=== PATIENT | male | born 1945 | race African-American/Black ===

== ENCOUNTER 2020-03-24 08:23 | Emergency (ER) | payer MEDICARE, OTHER ==
[~2020-03-24] VITALS: Ht 175.3 cm; Wt 77.1 kg
--- NOTE | 2020-03-24 08:29 | NUR ---
[id number] SYNCOPE FROM CLINIC, PT WAS FASTING FOR 2 DAYS. PT SYNCOPIZED BEFORE BLOOD DRAW. TO ER BED 12, HOOKED TO MONITOR, VSS, CHANGED TO HOSP GOWN, WARM BLANKET PROVIDED. PATIENT AAO x 3. BREATHING EVEN AND UNLABORED. DR HAMMOND AT BEDSIDE
--- NOTE | 2020-03-24 08:35 | NUR ---
Note ailyn in ED - 03/24/20 at 0908 by LALY patient esthela from clinic had syncopal episode, no injury noted, patient fasting x 2 days. On room air, breathing evenly and unlabored. connected to the monitor and pulse ox. kept comfortable, will continue to monitor accordingly.
--- NOTE | 2020-03-24 08:58 | NUR ---
bs checked 121
[2020-03-24] MEDS ORDERED: IV NS 0.9% 1,000 ML BAG IV ONE (09:00)
--- NOTE | 2020-03-24 09:26 | NUR ---
FRANCHESKA [phone] [employer]
[2020-03-24 09:34] LABS: BASOPHILS % (AUTO) 0.5 % (0.0-2.0); EOSINOPHILS % (AUTO) 1.7 % (0.0-6.0); HEMATOCRIT 29 % (39-51); LYMPHOCYTES # (AUTO) 1.2 /CMM (0.8-4.8); LYMPHOCYTES % (AUTO) 17.8 % (20.0-44.0); MEAN CORPUSCULAR HGB CONC 31 g/dl (31.0-36.0); MEAN CORPUSCULAR VOLUME 68 fL (80-96); MONOCYTES # (AUTO) 0.6 /CMM (0.1-1.30); MONOCYTES % (AUTO) 8.2 % (2.0-12.0); NEUTROPHILS % (AUTO) 71.8 % (43.0-81.0); PLATELET COUNT (AUTO) 244 /CMM (150-450); RED BLOOD CELL COUNT(AUTO) 4.26 MIL/uL (4.5-6.0); WHITE BLOOD COUNT (AUTO) 6.9 K/uL (4.3-11.0)
[2020-03-24 09:52] LABS: CALCIUM, SERUM 8.4 mg/dL (8.5-10.1); CARBON DIOXIDE 23 mmol/L (21-32); CHLORIDE 107 mmol/L (98-107); CREATININE 1.1 mg/dL (0.6-1.3); GLUCOSE 125 mg/dL (74-106); POTASSIUM 4.2 mmol/L (3.5-5.1); SODIUM SERUM 141 mmol/L (136-145); UREA NITROGEN, BLOOD 17 mg/dL (7-18)
[2020-03-24] MEDS ORDERED: SAXA1TBM2 PO (10:07)
[2020-03-24] MEDS ORDERED: DILT120C47 PO (10:07)
[2020-03-24] MEDS ORDERED: TAMS-12 PO (10:07)
[2020-03-24] MEDS ORDERED: ROSU10TA29 PO (10:07)
[2020-03-24 12:43] VITALS: BP 134/72
--- NOTE | 2020-03-24 12:43 | NUR ---
Patient discharged to home in stable condition. Written and verbal after care instructions given. Patient verbalizes understanding of instruction.IV removed. Catheter intact and site benign. Pressure and 4x4 applied to site. No bleeding noted.
--- NOTE | 2020-03-24 12:44 | NUR ---
PT ACCOMPANIED BY OPEN SOAPER TENDER UPON LEAVING ED.
== END 2020-03-24 12:45 | disposition home or self-care (01) ==
LOC: ER 08:26
DX: R55 Syncope and collapse (principal); I45.10 Unspecified right bundle-branch block; R53.1 Weakness; R42 Dizziness and giddiness; I12.9 Hypertensive chronic kidney disease with stage 1 through stage 4 chronic kidney disease, or unspecified chronic kidney disease; E11.22 Type 2 diabetes mellitus with diabetic chronic kidney disease; N18.9 Chronic kidney disease, unspecified; Z79.899 Other long term (current) drug therapy
CPT/HCPCS: 36415; 70450; 71045; 80048; 84484; 85025; 93005; 96360; 99285; J7030